=== PATIENT | female | born 1960 | race Caucasian/White ===

== ENCOUNTER 2021-12-22 13:00 | Outpatient (NON) | payer OTHER, SELFPAY | END 2021-12-22 13:01 | disposition home or self-care (01) | PROVIDERS: Visit Provider Nurse Practitioner | DX: C44.01 Basal cell carcinoma of skin of lip (principal) | CPT/HCPCS: 88305 ==

== ENCOUNTER 2022-01-26 17:29 | Outpatient (NON) | payer OTHER, SELFPAY | END 2022-01-26 17:30 | disposition home or self-care (01) | LOC: ANHLAB 17:30 | PROVIDERS: PCP Nurse Practitioner; Referring Provider Nurse Practitioner; Visit Provider Nurse Practitioner | DX: C44.01 Basal cell carcinoma of skin of lip (principal) | CPT/HCPCS: 88305; 88331 ==